=== PATIENT | male | born 1975 | race African-American/Black ===

== ENCOUNTER 2017-03-22 20:49 | Emergency (ER) | payer MEDICAID ==
[~2017-03-22] VITALS: Ht 185.4 cm; Wt 104.0 kg
[~2017-03-22 20:49] MED LIST: ALBU6.7H; ALBU6.7H INH; BUDE180A3 INH; HYDR-4134 PO; INSU3INS6 SUBCUT; LEVO500T2 PO; LISI-604 PO; QUET25TA PO
[2017-03-22] MEDS ORDERED: ALBUTEROL (0.083%) 2.5MG/3ML NEB HHN STA (21:28)
[2017-03-22] MEDS ORDERED: IPRATROPIUM BROMIDE (0.02%) 0.5MG/2.5ML NEB HHN STA (21:28)
[2017-03-22] MEDS ORDERED: PREDNISONE 20MG TABLET PO STA (21:28)
[2017-03-22 23:35] VITALS: BP 165/101
== END 2017-03-22 23:50 | disposition home or self-care (01) ==
LOC: ER 20:57
DX: J45.909 Unspecified asthma, uncomplicated (principal); J98.01 Acute bronchospasm; I10 Essential (primary) hypertension; F12.10 Cannabis abuse, uncomplicated
CPT/HCPCS: 93005; 94640; 99283; J7512

== ENCOUNTER 2018-03-26 03:04 | Inpatient (IN) | payer MEDICAID ==
[~2018-03-26] VITALS: Ht 172.7 cm; Wt 106.6 kg
[~2018-03-26 03:04] MED LIST changes: -ALBU6.7H; +AMOX-424 PO; -HYDR-4134 PO; +HYDR100T26 PO; +IPRA3AMP9 INH; -LEVO500T2 PO; -LISI-604 PO; +LISI40TA4 PO; +METH4TAB17 PO; +SULF1TAB48 PO
[2018-03-26] MEDS ORDERED: ALBUTEROL (0.083%) 2.5MG/3ML NEB HHN STA ×3 (03:50→07:22)
[2018-03-26] MEDS ORDERED: PREDNISONE 20MG TABLET PO STA (03:50)
[2018-03-26] MEDS ORDERED: IPRATROPIUM BROMIDE (0.02%) 0.5MG/2.5ML NEB HHN STA ×3 (03:50→07:22)
[2018-03-26] MEDS ORDERED: MAGNESIUM 2 G PREMIX 50 ML IV ONE (04:00)
[2018-03-26] MEDS: MAGNESIUM GLUCONATE 500MG TABLET PO SCH ×2 (05:37→09:00)
[2018-03-26] MEDS ORDERED: ALBUTEROL (0.5%) 2.5MG/0.5ML NEB HHN ONE (06:31)
[2018-03-26] MEDS ORDERED: IPRATROPIUM BROMIDE (0.02%) 0.5MG/2.5ML NEB ONE (06:32)
[2018-03-26 08:14] LABS: BASOPHILS % 0.4 % (0.0-2.0); EOSINOPHILS % 5.7 % (0.0-5.0); HEMATOCRIT. 48.1 % (42.0-52.0); HEMOGLOBIN. 15.5 g/dL (14.0-18.0); LYMPHOCYTES % 9.9 % (20.0-50.0); MEAN CORPUSCULAR HEMOGLOBIN 26.7 pg (28.0-32.0); MEAN CORPUSCULAR VOLUME 83.1 fL (80.0-94.0); MEAN PLATELET VOLUME 10.8 fl (7.4-10.4); MONOCYTES % 2.4 % (2.0-8.0); NEUTROPHILS % 81.6 % (40.0-76.0); PLATELET 163 x1000/uL (130-400); RED BLOOD CELL COUNT 5.79 mill/uL (4.7-6.1); RED CELL DISTRIBUTION WIDTH 13.9 % (11.6-14.6)
[2018-03-26 08:21] LABS: CHLORIDE 100 mEq/L (98-107)
[2018-03-26 10:16] LABS: INR 1.1; PARTIAL THROMBOPLASTIN TIME 28.7 sec (23.4-31.0)
[2018-03-26] MEDS ORDERED: CLONIDINE 0.2MG TABLET PO PRN (14:34)
[2018-03-26 17:00] VITALS: BP 145/90
[2018-03-26] MEDS ORDERED: ONDANSETRON HCL 4MG/2ML INJ IV PRN (17:45)
[2018-03-26] MEDS: IPRATROPIUM/ALBUTEROL 0.5-3(2.5)MG/3ML NEB HHN SCH ×3 (18:31→23:39)
[2018-03-26] MEDS ORDERED: DEXTROSE 50% WATER 50ML SYRINGE IV PRN (19:30)
[2018-03-26] MEDS ORDERED: IPRATROPIUM/ALBUTEROL 0.5-3(2.5)MG/3ML NEB HHN SCH (20:00)
[2018-03-26] MEDS: BLOOD SUGAR DIAGNOSTIC STRIP TEST SCH (20:31)
[2018-03-26] MEDS: INSULIN LISPRO 100 UNITS/ML SUBCUT SCH (20:35)
[2018-03-26] MEDS: METHYLPREDNISOLONE SOD SUCC 40 MG/ML VIAL IV SCH (20:38)
[2018-03-26] MEDS: QUETIAPINE FUMARATE 25MG TABLET PO SCH (20:39)
[2018-03-26] MEDS: ENOXAPARIN 30MG/0.3ML SYR SUBCUT SCH (20:39)
[2018-03-26] MEDS ORDERED: AMOXICILLIN/POTASSIUM CLAVULANATE 875/125MG TAB PO SCH (21:00)
[2018-03-26] MEDS ORDERED: SULFAMETHOXAZOLE/TRIMETHOPRIM 400/80MG TAB PO SCH (21:00)
[2018-03-26] MEDS: HYDRALAZINE HCL 100MG TABLET PO SCH (21:13)
[2018-03-27] VITALS: BP 140/60
[2018-03-27] MEDS: IPRATROPIUM/ALBUTEROL 0.5-3(2.5)MG/3ML NEB HHN SCH ×5 (03:19→21:49)
[2018-03-27 04:00] VITALS: BP 138/62
[2018-03-27] MEDS: HYDRALAZINE HCL 100MG TABLET PO SCH ×3 (06:12→20:12)
[2018-03-27] MEDS: BLOOD SUGAR DIAGNOSTIC STRIP TEST SCH ×4 (06:21→21:33)
[2018-03-27] MEDS: INSULIN LISPRO 100 UNITS/ML SUBCUT SCH ×4 (07:50→21:56)
[2018-03-27 08:17] LABS: BASOPHILS % 0.6 % (0.0-2.0); EOSINOPHILS % 4.7 % (0.0-5.0); HEMATOCRIT. 44.2 % (42.0-52.0); HEMOGLOBIN. 14.2 g/dL (14.0-18.0); LYMPHOCYTES % 20.6 % (20.0-50.0); MEAN CORPUSCULAR HEMOGLOBIN 26.8 pg (28.0-32.0); MEAN CORPUSCULAR VOLUME 83.4 fL (80.0-94.0); MEAN PLATELET VOLUME 11.5 fl (7.4-10.4); MONOCYTES % 9.3 % (2.0-8.0); NEUTROPHILS % 64.8 % (40.0-76.0); PLATELET 182 x1000/uL (130-400); RED BLOOD CELL COUNT 5.29 mill/uL (4.7-6.1); RED CELL DISTRIBUTION WIDTH 13.9 % (11.6-14.6)
[2018-03-27 08:28] LABS: CHLORIDE 103 mEq/L (98-107)
[2018-03-27 08:51] VITALS: BP 150/69
[2018-03-27] MEDS: METHYLPREDNISOLONE SOD SUCC 40 MG/ML VIAL IV SCH (10:09)
[2018-03-27] MEDS: LISINOPRIL 40MG TABLET PO SCH (10:12)
[2018-03-27] MEDS: ENOXAPARIN 30MG/0.3ML SYR SUBCUT SCH ×2 (10:47→20:14)
[2018-03-27 13:19] VITALS: BP 162/98
[2018-03-27] MEDS: QUETIAPINE FUMARATE 25MG TABLET PO SCH (18:06)
[2018-03-27 20:00] VITALS: BP 148/83
[2018-03-27] MEDS: HYDROCODONE/ACETAMINOPHEN 5/325MG TABLET PO PRN (20:13)
[2018-03-27] MEDS ORDERED: ZOLPIDEM TARTRATE 5MG TABLET PO PRN (21:45)
[2018-03-27] MEDS ORDERED: INSULIN GLARGINE UD 100 UNITS/ML SYR SUBCUT SCH (23:00)
[2018-03-28] VITALS: BP 115/53
[2018-03-28] MEDS: IPRATROPIUM/ALBUTEROL 0.5-3(2.5)MG/3ML NEB HHN SCH ×6 (01:45→20:17)
[2018-03-28 04:00] VITALS: BP 136/76
[2018-03-28] MEDS: BLOOD SUGAR DIAGNOSTIC STRIP TEST SCH ×4 (06:13→21:44)
[2018-03-28] MEDS: HYDRALAZINE HCL 100MG TABLET PO SCH ×3 (06:13→21:34)
[2018-03-28] MEDS: INSULIN LISPRO 100 UNITS/ML SUBCUT SCH ×4 (07:50→21:44)
[2018-03-28 08:00] VITALS: BP 137/71
[2018-03-28] MEDS: LISINOPRIL 40MG TABLET PO SCH (09:01)
[2018-03-28] MEDS: ENOXAPARIN 30MG/0.3ML SYR SUBCUT SCH ×2 (09:02→21:33)
[2018-03-28] MEDS: METHYLPREDNISOLONE SOD SUCC 40 MG/ML VIAL IV SCH (09:31)
[2018-03-28] MEDS: HYDROCODONE/ACETAMINOPHEN 5/325MG TABLET PO PRN (12:28)
[2018-03-28 12:45] VITALS: BP 136/78
[2018-03-28] MEDS: QUETIAPINE FUMARATE 25MG TABLET PO SCH (17:00)
[2018-03-28 17:25] VITALS: BP 119/68
[2018-03-28] MEDS ORDERED: INSULIN GLARGINE UD 100 UNITS/ML SYR SUBCUT SCH (23:00)
[2018-03-29] MEDS: IPRATROPIUM/ALBUTEROL 0.5-3(2.5)MG/3ML NEB HHN SCH ×4 (00:39→13:07)
[2018-03-29] MEDS: HYDRALAZINE HCL 100MG TABLET PO SCH ×2 (05:32→14:15)
[2018-03-29] MEDS: BLOOD SUGAR DIAGNOSTIC STRIP TEST SCH ×3 (07:20→17:04)
[2018-03-29] MEDS: INSULIN LISPRO 100 UNITS/ML SUBCUT SCH ×3 (07:46→17:05)
[2018-03-29 08:00] VITALS: BP 158/95
[2018-03-29] MEDS: LISINOPRIL 40MG TABLET PO SCH (08:57)
[2018-03-29] MEDS: ENOXAPARIN 30MG/0.3ML SYR SUBCUT SCH (08:57)
[2018-03-29] MEDS: PREDNISONE 20MG TABLET PO SCH ×2 (08:57→17:03)
[2018-03-29] MEDS: HYDROCODONE/ACETAMINOPHEN 5/325MG TABLET PO PRN (09:08)
[2018-03-29 14:26] VITALS: BP 150/93
[2018-03-29] MEDS: QUETIAPINE FUMARATE 25MG TABLET PO SCH (16:54)
== END 2018-03-29 17:40 | disposition home or self-care (01) | DRG 133 ==
LOC: ER 03:06 → 6WST 07:48 → EDBEDREQ 07:50 → ENRESERV 12:19
PROVIDERS: ADMIT Internal Medicine; ATTEND Internal Medicine
PROC: 02HV33Z Insertion of Infusion Device into Superior Vena Cava, Percutaneous Approach (ICD-10-PCS; principal; 2018-03-26)
PROC: B548ZZA Ultrasonography of Superior Vena Cava, Guidance (ICD-10-PCS; 2018-03-26)
DX: J96.01 Acute respiratory failure with hypoxia (principal); E11.65 Type 2 diabetes mellitus with hyperglycemia; D72.829 Elevated white blood cell count, unspecified; J45.901 Unspecified asthma with (acute) exacerbation; E66.01 Morbid (severe) obesity due to excess calories; I10 Essential (primary) hypertension; J98.11 Atelectasis; Z87.891 Personal history of nicotine dependence; Z88.8 Allergy status to other drugs, medicaments and biological substances; Z79.51 Long term (current) use of inhaled steroids; Z79.899 Other long term (current) drug therapy; Z68.35 Body mass index [BMI] 35.0-35.9, adult
CPT/HCPCS: 36415; 36569; 71045; 71250; 76937; 80048; 82962; 83036; 94640; 99285; C1725; C1769; J1650; J1815; J2920; J7512; J7611; J7620

== ENCOUNTER 2018-04-29 05:11 | Emergency (ER) | payer MEDICAID ==
[~2018-04-29] VITALS: Ht 182.9 cm; Wt 105.0 kg
[2018-04-29] MEDS ORDERED: PREDNISONE 20MG TABLET PO STA (06:24)
[2018-04-29 07:52] VITALS: BP 140/93
== END 2018-04-29 08:15 | disposition home or self-care (01) ==
LOC: ER 05:28
DX: J45.901 Unspecified asthma with (acute) exacerbation (principal); I10 Essential (primary) hypertension
CPT/HCPCS: 71045; 99283; J7512

== ENCOUNTER 2018-06-04 05:29 | Inpatient (IN) | payer MEDICAID ==
[~2018-06-04] VITALS: Ht 188 cm; Wt 104.3 kg
[2018-06-04] MEDS ORDERED: IPRATROPIUM BROMIDE (0.02%) 0.5MG/2.5ML NEB HHN STA (07:57)
[2018-06-04] MEDS ORDERED: METHYLPREDNISOLONE SOD SUCC 125 MG/2 ML VIAL IV STA (07:57)
[2018-06-04] MEDS ORDERED: ALBUTEROL (0.083%) 2.5MG/3ML NEB HHN STA (07:57)
[2018-06-04] MEDS ORDERED: LEVOFLOXACIN 500MG PREMIX 100 ML IV ONE (08:15)
[2018-06-04] MEDS ORDERED: ENALAPRIL 2.5MG/2ML VIAL 2ML IV ONE (08:15)
[2018-06-04 08:46] LABS: HEMATOCRIT. 48.8 % (42.0-52.0); HEMOGLOBIN. 15.7 g/dL (14.0-18.0); MEAN CORPUSCULAR HEMOGLOBIN 26.8 pg (28.0-32.0); MEAN CORPUSCULAR VOLUME 83.2 fL (80.0-94.0); MEAN PLATELET VOLUME 10.6 fl (7.4-10.4); PLATELET 197 x1000/uL (130-400); RED BLOOD CELL COUNT 5.86 mill/uL (4.7-6.1); RED CELL DISTRIBUTION WIDTH 13.9 % (11.6-14.6)
[2018-06-04 08:47] LABS: CHLORIDE 103 mEq/L (98-107)
[2018-06-04 08:48] LABS: INR 1.1; PARTIAL THROMBOPLASTIN TIME 30.3 sec (23.4-31.0); PROTHROMBIN TIME 11.3 sec (9.1-11.1)
[2018-06-04 08:53] LABS: BETA HYDROXYBUTYRATE 0.1 mMol/L (0.0-0.3)
[2018-06-04 09:09] LABS: CLARITY URINE CLOUDY (CLEAR); COLOR URINE YELLOW (YELLOW); KETONES URINE NEGATIVE (NEGATIVE); LEUKOCYTE ESTERASE URINE 1+ (NEGATIVE); NITRITE URINE NEGATIVE (NEGATIVE); OCCULT BLOOD URINE NEGATIVE (NEGATIVE); PH URINE 5.5 (4.5-8.0); PROTEIN URINE 1+ (NEGATIVE); SPECIFIC GRAVITY URINE 1.017 (1.005-1.030); UROBILINOGEN URINE 0.2 E.U./dL (0.2-1.0)
[2018-06-04 09:17] LABS: PLATELET ESTIMATE NORMAL
[2018-06-04 09:26] LABS: *AMPHETAMINES SCREEN URINE PRESUMTIVE POSITIVE (NEGATIVE); *BARBITURATES SCREEN URINE NEGATIVE (NEGATIVE); CANNABINOID URINE SCREEN NEGATIVE (NEGATIVE); METHADONE URINE SCREEN NEGATIVE (NEGATIVE); OPIATES URINE SCREEN NEGATIVE (NEGATIVE); PHENCYCLIDINE URINE SCREEN PRESUMTIVE POSITIVE (NEGATIVE)
[2018-06-04 09:27] LABS: *BENZODIAZEPINES SCREEN URINE NEGATIVE (NEGATIVE); *COCAINE SCREEN URINE NEGATIVE (NEGATIVE)
[2018-06-04] MEDS ORDERED: HYDROCODONE/ACETAMINOPHEN 5/325MG TABLET PO ONE (09:45)
[2018-06-04] MEDS ORDERED: GUAIFENESIN 200MG/10ML SUGAR FREE UDC PO PRN (11:00)
[2018-06-04] MEDS ORDERED: LORAZEPAM 2MG/ML CPJ IV PRN (11:00)
[2018-06-04] MEDS ORDERED: DIPHENHYDRAMINE 50MG/ML VIAL IV PRN (11:00)
[2018-06-04] MEDS ORDERED: MAGNESIUM/ALUMINUM HYDROXIDE/SIMETHICONE 30ML UDC PO PRN (11:00)
[2018-06-04] MEDS ORDERED: DEXTROSE 50% WATER 50ML SYRINGE IV PRN (11:00)
[2018-06-04] MEDS ORDERED: HYDROCODONE/ACETAMINOPHEN 10/325MG TABLET PO PRN (11:00)
[2018-06-04] MEDS ORDERED: CLONIDINE 0.1MG TABLET PO PRN (11:00)
[2018-06-04] MEDS ORDERED: DOCUSATE SODIUM 100MG CAPSULE PO PRN (11:00)
[2018-06-04] MEDS ORDERED: HYDRALAZINE 20MG/ML VIAL IV PRN (11:00)
[2018-06-04] MEDS ORDERED: ACETAMINOPHEN 325MG TABLET PO PRN (11:00)
[2018-06-04] MEDS ORDERED: IPRATROPIUM/ALBUTEROL 0.5-3(2.5)MG/3ML NEB INH PRN (11:00)
[2018-06-04] MEDS ORDERED: ONDANSETRON HCL 4MG/2ML INJ IV PRN (11:00)
[2018-06-04 12:00] VITALS: BP 140/86
[2018-06-04] MEDS ORDERED: METHYLPREDNISOLONE SOD SUCC 125 MG/2 ML VIAL IV SCH (12:30)
[2018-06-04 12:46] VITALS: BP 140/86
[2018-06-04] MEDS: BLOOD SUGAR DIAGNOSTIC STRIP TEST SCH ×3 (13:19→21:02)
[2018-06-04] MEDS: ENOXAPARIN 40MG/0.4ML SYR SUBCUT SCH (13:28)
[2018-06-04] MEDS: INSULIN LISPRO 100 UNITS/ML SUBCUT SCH ×3 (13:29→21:16)
[2018-06-04] MEDS: SODIUM CHLORIDE 0.9% INJ 3ML FLUSH IVF SCH ×2 (13:47→22:00)
[2018-06-04] MEDS: LORATADINE 10MG TABLET PO SCH (13:47)
[2018-06-04] MEDS: CEFTRIAXONE 1 G PREMIX 50 ML IV SCH ×2 (15:00→15:27)
[2018-06-04] MEDS: AZITHROMYCIN 250 MG TABLET PO SCH (15:27)
[2018-06-04 16:00] VITALS: BP 154/62
[2018-06-04 16:36] LABS: CREATINE KINASE 189 IU/L (39-308); CREATINE KINASE MB FRACTION 1.4 ng/mL (0.5-3.6)
[2018-06-04 20:00] VITALS: BP 129/76
[2018-06-04] MEDS: IPRATROPIUM/ALBUTEROL 0.5-3(2.5)MG/3ML NEB HHN SCH (20:31)
[2018-06-04] MEDS: FAMOTIDINE 20MG/2ML VIAL IV SCH (21:00)
[2018-06-04] MEDS: MONTELUKAST SODIUM 10MG TABLET PO SCH (21:16)
[2018-06-04 23:50] LABS: CREATINE KINASE 179 IU/L (39-308)
[2018-06-04 23:51] LABS: CREATINE KINASE MB FRACTION 2.1 ng/mL (0.5-3.6)
[2018-06-05] VITALS: BP 141/78
[2018-06-05] MEDS: IPRATROPIUM/ALBUTEROL 0.5-3(2.5)MG/3ML NEB HHN SCH ×4 (02:05→21:24)
[2018-06-05 04:00] VITALS: BP 149/91
[2018-06-05] MEDS: SODIUM CHLORIDE 0.9% INJ 3ML FLUSH IVF SCH ×3 (05:16→21:16)
[2018-06-05 06:41] LABS: BASOPHILS % 0.1 % (0.0-2.0); EOSINOPHILS % 0.2 % (0.0-5.0); HEMATOCRIT. 43.7 % (42.0-52.0); HEMOGLOBIN. 13.9 g/dL (14.0-18.0); LYMPHOCYTES % 12.2 % (20.0-50.0); MEAN CORPUSCULAR HEMOGLOBIN 26.6 pg (28.0-32.0); MEAN CORPUSCULAR VOLUME 83.6 fL (80.0-94.0); MEAN PLATELET VOLUME 11.3 fl (7.4-10.4); NEUTROPHILS % 79.5 % (40.0-76.0); PLATELET 211 x1000/uL (130-400); RED BLOOD CELL COUNT 5.23 mill/uL (4.7-6.1); RED CELL DISTRIBUTION WIDTH 13.6 % (11.6-14.6)
[2018-06-05 06:42] LABS: CHLORIDE 100 mEq/L (98-107)
[2018-06-05] MEDS: BLOOD SUGAR DIAGNOSTIC STRIP TEST SCH ×4 (06:49→21:03)
[2018-06-05 07:00] LABS: T4 FREE 1.15 ng/dL (0.76-1.46)
[2018-06-05 07:01] LABS: HDL CHOLESTEROL 33 mg/dL (40-59)
[2018-06-05 07:02] LABS: LDL CHOLESTEROL 58 mg/dL (5-100)
[2018-06-05] MEDS ORDERED: LIDOCAINE HCL 1% 20ML VIAL (Pyxis) INJ ONE (07:23)
[2018-06-05 08:00] VITALS: BP 138/77
[2018-06-05] MEDS: INSULIN LISPRO 100 UNITS/ML SUBCUT SCH ×4 (08:10→21:14)
[2018-06-05] MEDS ORDERED: LEVOFLOXACIN 500MG PREMIX 100 ML IV SCH (09:00)
[2018-06-05] MEDS ORDERED: PREDNISONE 20MG TABLET PO SCH (09:00)
[2018-06-05] MEDS: ASPIRIN 81MG EC TABLET PO SCH (09:00)
[2018-06-05] MEDS: ENOXAPARIN 40MG/0.4ML SYR SUBCUT SCH (11:11)
[2018-06-05] MEDS: LORATADINE 10MG TABLET PO SCH (11:12)
[2018-06-05] MEDS: AZITHROMYCIN 250 MG TABLET PO SCH (11:12)
[2018-06-05] MEDS: FAMOTIDINE 20MG/2ML VIAL IV SCH ×2 (11:37→21:15)
[2018-06-05] MEDS: HYDROMORPHONE HCL/PF 2MG/ML CPJ IV PRN ×2 (11:38→19:22)
[2018-06-05 12:00] VITALS: BP 166/82
[2018-06-05] MEDS ORDERED: BUDESONIDE 0.5MG/2ML NEB HHN SCH (14:30)
[2018-06-05] MEDS: CEFTRIAXONE 1 G PREMIX 50 ML IV SCH (15:57)
[2018-06-05 16:00] VITALS: BP 149/87
[2018-06-05 20:00] VITALS: BP 149/84
[2018-06-05] MEDS: ENOXAPARIN 30MG/0.3ML SYR SUBCUT SCH (20:23)
[2018-06-05] MEDS ORDERED: INSULIN LISPRO 100 UNITS/ML SUBCUT NR (21:00)
[2018-06-05] MEDS: MONTELUKAST SODIUM 10MG TABLET PO SCH (21:15)
[2018-06-06] VITALS: BP 140/86
[2018-06-06] MEDS: IPRATROPIUM/ALBUTEROL 0.5-3(2.5)MG/3ML NEB HHN SCH ×3 (02:09→13:12)
[2018-06-06] MEDS: HYDROMORPHONE HCL/PF 2MG/ML CPJ IV PRN ×2 (02:19→08:37)
[2018-06-06 04:00] VITALS: BP 133/79
[2018-06-06] MEDS: SODIUM CHLORIDE 0.9% INJ 3ML FLUSH IVF SCH (06:13)
[2018-06-06 06:20] LABS: BASOPHILS % 0.5 % (0.0-2.0); EOSINOPHILS % 0.3 % (0.0-5.0); HEMATOCRIT. 41.6 % (42.0-52.0); HEMOGLOBIN. 13.2 g/dL (14.0-18.0); LYMPHOCYTES % 20.7 % (20.0-50.0); MEAN CORPUSCULAR HEMOGLOBIN 26.4 pg (28.0-32.0); MONOCYTES % 7.7 % (2.0-8.0); NEUTROPHILS % 70.8 % (40.0-76.0); PLATELET 200 x1000/uL (130-400); RED BLOOD CELL COUNT 5.01 mill/uL (4.7-6.1); RED CELL DISTRIBUTION WIDTH 13.8 % (11.6-14.6)
[2018-06-06 06:22] LABS: CHLORIDE 103 mEq/L (98-107)
[2018-06-06] MEDS: BLOOD SUGAR DIAGNOSTIC STRIP TEST SCH (06:42)
[2018-06-06] MEDS: INSULIN LISPRO 100 UNITS/ML SUBCUT SCH (07:35)
[2018-06-06 08:00] VITALS: BP 136/85
[2018-06-06] MEDS: LORATADINE 10MG TABLET PO SCH (08:36)
[2018-06-06] MEDS: FAMOTIDINE 20MG/2ML VIAL IV SCH (08:36)
[2018-06-06] MEDS: ENOXAPARIN 30MG/0.3ML SYR SUBCUT SCH (08:36)
[2018-06-06] MEDS: ASPIRIN 81MG EC TABLET PO SCH (08:36)
[2018-06-06] MEDS ORDERED: PREDNISONE 20MG TABLET PO SCH (09:00)
[2018-06-06] MEDS: AZITHROMYCIN 250 MG TABLET PO SCH (09:29)
[2018-06-06 11:42] VITALS: BP 136/85
== END 2018-06-06 12:33 | disposition home or self-care (01) | DRG 133 ==
LOC: ER 05:45 → 7WST 08:53 → EDBEDREQTM 09:00 → EDBEDREQ 09:00 → ENRESERV 09:33
PROVIDERS: ADMIT Internal Medicine; ATTEND Internal Medicine
PROC: B5181ZA Fluoroscopy of Superior Vena Cava using Low Osmolar Contrast, Guidance (ICD-10-PCS; principal; 2018-06-05)
PROC: 02HV33Z Insertion of Infusion Device into Superior Vena Cava, Percutaneous Approach (ICD-10-PCS; 2018-06-05)
PROC: B548ZZA Ultrasonography of Superior Vena Cava, Guidance (ICD-10-PCS; 2018-06-05)
DX: J96.00 Acute respiratory failure, unspecified whether with hypoxia or hypercapnia (principal); E87.2 Acidosis; E46 Unspecified protein-calorie malnutrition; J45.901 Unspecified asthma with (acute) exacerbation; E11.9 Type 2 diabetes mellitus without complications; D72.823 Leukemoid reaction; F15.10 Other stimulant abuse, uncomplicated; F16.10 Hallucinogen abuse, uncomplicated; I10 Essential (primary) hypertension; T38.0X5A Adverse effect of glucocorticoids and synthetic analogues, initial encounter; Y92.89 Other specified places as the place of occurrence of the external cause; Z79.4 Long term (current) use of insulin; Z79.899 Other long term (current) drug therapy; Z87.01 Personal history of pneumonia (recurrent); Z68.29 Body mass index [BMI] 29.0-29.9, adult; Z71.6 Tobacco abuse counseling
CPT/HCPCS: 36415; 36569; 71045; 76937; 77001; 80048; 80061; 80305; 82010; 82550; 82553; 82962; 83605; 83880; 84145; 84439; 84443; 84484; 87070; 87804; 93005; 94640; 96374; 99285; C1725; J0696; J1170; J1650; J1815; J1956; J2930; J3490; J7040; J7512; J7611; J7620; J7626